=== PATIENT | male | born 1990 | race Caucasian/White ===

== ENCOUNTER 2016-08-29 22:46 | Inpatient (IN) | payer OTHER ==
[~2016-08-29] VITALS: Ht 170.2 cm; Wt 65.0 kg
[2016-08-29 22:51] VITALS: BP 112/66
[2016-08-29 23:40] LABS: ABSOLUTE NEUTROPHILS 3.8 thou/uL (1.4-8.2); BASOPHILS 0.3 % (0.0-2.0); EOSINOPHILS 0.4 % (0.0-3.0); HEMATOCRIT 35.8 % (42.0-52.0); HEMOGLOBIN 12.6 gm/dL (14.0-18.0); LYMPHOCYTES 24.2 % (24.0-44.0); MCH 31.8 pg (26.0-34.0); MCHC 35.3 g/dL (28.0-37.0); MCV 90.1 fL (80.0-100.0); MONOCYTES 8.1 % (1.0-8.0); PLATELET COUNT 193 thou/uL (150-400); RBC 3.97 mil/uL (4.50-6.00); RDW 11.9 % (10.5-14.5); WBC 5.7 thou/uL (4.0-11.0)
[2016-08-29 23:43] LABS: MANUAL DIFF NO
[2016-08-29 23:48] LABS: ALBUMIN 4.3 g/dL (3.4-5.0); CALCIUM 8.8 mg/dL (8.5-10.1); CREATININE 0.7 mg/dL (0.7-1.3); DIRECT BILIRUBIN 0.2 mg/dL (<0.1-0.3); TOTAL BILIRUBIN 1.2 mg/dL (<0.1-1.0); TOTAL PROTEIN 6.9 g/dL (6.4-8.2)
[2016-08-29 23:53] LABS: POTASSIUM 2.7 mmol/L (3.5-5.1)
[2016-08-30 00:11] LABS: URINE BILIRUBIN NEGATIVE (Negative); URINE BLOOD NEGATIVE (Negative); URINE COLOR YELLOW; URINE GLUCOSE-RANDOM* NEGATIVE (Negative); URINE KETONES 1+ (Negative); URINE NITRITE NEGATIVE (Negative); URINE PROTEIN (DIPSTICK) NEGATIVE (Negative); URINE UROBILINOGEN 0.2 E.U./dl (0.2-1.0)
[2016-08-30 01:54] VITALS: BP 109/63
[2016-08-30 02:06] VITALS: BP 97/58
[2016-08-30 05:36] VITALS: BP 103/61
[2016-08-30 09:48] LABS: CREATININE 0.8 mg/dL (0.7-1.3); MAGNESIUM 2.3 mg/dL (1.8-2.4)
[2016-08-30 12:07] VITALS: BP 106/50
[2016-08-30 16:00] VITALS: BP 99/59
[2016-08-30 18:08] VITALS: BP 99/59
[2016-08-31 03:16] LABS: GLYCOHEMOGLOBIN (HGB A1C) 4.7 % (4.8-5.6)
== END 2016-08-30 19:08 | disposition home or self-care (01) | DRG 641 ==
LOC: ER 22:46 → EROBS 08-30 00:11 → 4S 08-30 02:04
PROVIDERS: Nurse Practitioner; Nurse Practitioner Family
DX: E87.1 Hypo-osmolality and hyponatremia (principal); E86.0 Dehydration; E87.6 Hypokalemia; K59.00 Constipation, unspecified; E83.42 Hypomagnesemia; Z88.6 Allergy status to analgesic agent
CPT/HCPCS: 10100